=== PATIENT | male | born 2000 | race Caucasian/White ===

== ENCOUNTER 2023-05-08 14:30 | Emergency (ER) | payer BC, SELFPAY ==
--- NOTE | ~2023-05-08 | XR_ITS ---
EXAMINATION: XR HAND, LEFT CLINICAL INFORMATION: Dog bite COMPARISON: None available. TECHNIQUE: PA, lateral, and oblique views of the left hand. FINDINGS: Bone alignment is normal. No fracture or dislocation. Normal joint spaces. There is evidence of trauma to the soft tissues of the distal third finger. No soft tissue foreign body. XR/XR hand LT min 3V IMPRESSION: No fracture or dislocation.
[2023-05-08 15:17] VITALS: BP 131/79; PULSE 68; RESP 18; TEMP 36.9; O2SAT 99; BMI 20.3
--- NOTE | 2023-05-08 15:17 | ED.ANIMALBIT ---
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 dog is up-to-date He believes his nail was avulsed He denies any other injury, pain is mild Related Data Previous Rx's Medication Instructions Recorded amoxicillin 875 mg-potassium 1 tab PO BID 3 days #6 tabs 05/08/23 clavulanate 125 mg tablet ibuprofen 600 mg tablet 600 mg PO Q6H PRN pain #20 tabs 05/08/23 Allergies Allergy/AdvReac Type Severity Reaction Status Date / Time No Known Allergies Allergy Verified 05/08/23 15:17 [facility] Past Medical History Source: nursing notes reviewed Social History Social History Advance Directives: No Advance Directives Information Provided: No Physical Exam ED Vital Signs: Vital Signs - 24 hr 05/08/23 15:17 Temperature 98.5 F Pulse Rate 68 Respiratory Rate 18 Blood Pressure 131/79 Pulse Oximetry 99 Oxygen Delivery Method Room Air BMI result Body Mass Index 20.3 General appearance is no acute distress Head normocephalic atraumatic Neck is supple Respiratory no distress Extremities full range of motion x4 Left middle finger there is abrasion around the nail bed and the nail is avulsed and it is bleeding from the nail bed mildly The finger is neurovascular intact distal Other extremities normal Course Course Course Narrative: RME - 22 yo right hand dominant male presents to the ER from Urgent Care for evaluation of a dog bite to his left hand & 3rd digit sustained just prior to arrival. 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 His tetanus is up to date. Sent from Urgent Care for concerns of bone involvement. Plan: x-ray, wound evaluation in [facility], antibiotics Wound is cleansed and irrigated X-ray was negative for fracture or foreign body No packing was placed in nail bed as concern for infection due to dog body Sterile nonadherent dressing is placed Augmentin prophylactic antibiotic is started, patient is up-to-date to tetanus and he is discharged Medications Administered Discontinued Medications Generic Name Dose Route Start Last Admin Trade Name Freq PRN Reason Stop Dose Admin Amoxicillin/Clavulanate Potassium 875 mg 05/08/23 17:33 05/08/23 17:36 Amoxicillin/Potassium Clav 875 Mg Tablet PO 05/08/23 17:34 875 mg ONCE ONE Administration Discharge Plan Discharge Clinical Impression: Dog bite Patient Disposition: Home, Self-Care Additional Instructions: Follow with hand doctor for further evaluation of avulsed nail Use preventative antibiotic for 4 days It is always good idea to take probiotics to prevent diarrhea if taking an antibiotic Return any time for redness, swelling, increased pain, any worse condition or any concerns Prescriptions: New amoxicillin-pot clavulanate 875-125 mg tablet 1 tab PO BID 3 Days Qty: 6 0RF ibuprofen 600 mg tablet 600 mg PO Q6H PRN (Reason: pain) Qty: 20 0RF Referrals: Sayra Hatch MD [Physician] - (Left middle finger nail avulsion from dog bite)
[2023-05-08] MEDS: Amoxicillin/Potassium Clav 875 MG TABLET PO (17:36)
== END 2023-05-08 18:02 | disposition home or self-care (01) ==
PROVIDERS: Emergency Provider Emergency Medicine
DX: S61.353A Open bite of left middle finger with damage to nail, initial encounter (principal); W54.0XXA Bitten by dog, initial encounter; Y93.9 Activity, unspecified; Y92.9 Unspecified place or not applicable; Y99.9 Unspecified external cause status
CPT/HCPCS: 73130; 99282; 99283